=== PATIENT | male | born 1940 | race Caucasian/White ===

== ENCOUNTER 2024-01-24 09:14 | Inpatient (IN) ==
[2024-01-24] MEDS ORDERED: IOPAMIDOL 100 ML BOTTLE IV ONE (09:15)
[2024-01-24] MEDS: 0.9 % SODIUM CHLORIDE 1,000 ML IV ONE ×2 (09:26→19:44)
[2024-01-24] MEDS: ONDANSETRON 4 MG/2 ML VIAL IV ONE (09:28)
[2024-01-24 09:46] LABS: Basophils # (Auto) 0.02 K/mcL (0.00-0.30); Basophils % (Auto) 0.3 % (0.0-2.0); Eosinophils # (Auto) 0.17 K/mcL (0.00-0.70); Eosinophils % (Auto) 2.7 % (0.0-7.0); Hematocrit 36.8 % (40.1-51.0); Hemoglobin 12.5 g/dL (13.7-17.5); Lymphocytes # (Auto) 1.33 K/mcL (1.50-4.80); Lymphocytes % (Auto) 20.8 % (15.5-49.0); Mean Cell Volume 96.1 fL (80.0-100.0); Mean Platelet Volume 8.7 fL (8.8-12.5); Monocytes # (Auto) 0.59 K/mcL (0.10-0.90); Monocytes % (Auto) 9.2 % (1.0-12.0); Neutrophils % (Auto) 66.1 % (38.0-78.0); Platelet Count 237 K/mcL (140-440); RBC 3.83 M/mcL (4.63-6.08); Red Cell Distribution Width 12.9 % (11.5-14.5); WBC 6.4 K/mcL (4.5-11.0)
[2024-01-24 10:07] LABS: ALT/SGPT 10 U/L (<40); AST/SGOT 28 U/L (<40); Albumin 4.1 gm/dL (3.2-5.2); Albumin/Globulin Ratio 1.4 (1.0-2.3); Alkaline Phosphatase 64 U/L (39-117); Bilirubin,Total 0.5 mg/dL (0.1-1.0); Blood Urea Nitrogen 35 mg/dL (8-23); Calcium 9.2 mg/dL (8.6-10.4); Carbon Dioxide 18 mmol/L (22-30); Chloride 94 mmol/L (96-108); Glomerular Filtration Rate 81; Glucose 82 mg/dL (70-105); Potassium 4.7 mmol/L (3.3-5.1); Sodium 131 mmol/L (133-145)
[2024-01-24] MEDS: HYDROmorphone 1 MG/ML SYRINGE IV ONE (12:11)
[2024-01-24 13:46] LABS: Appearance,Urine Clear (Clear); Bilirubin,Urine Small mg/dL (Negative); Color,Urine Yellow; Glucose,Urine (UA) Negative (Negative); Ketones,Urine 80 mg/dL (Negative); Leukocyte Esterase,Urine Negative /uL (Negative); Nitrate,Urine Negative (Negative); Protein,Urine Negative (Negative); Urine Blood Moderate ery/mcL (Negative); Urine Hyaline Cast 7 /lph (0-2); Urine RBC 2 /hpf (0-3); Urine Squamous Epithelial Cell 1 /hpf (0-4); Urine WBC 0 /hpf (0-4); Urobilinogen,Urine Normal
[2024-01-24] MEDS: AZITHROMYCIN 250 MG TABLET PO ONE (15:32)
[2024-01-24] MEDS: AMOXICILLIN/POTASSIUM CLAV 875 MG TABLET PO ONE (15:32)
[2024-01-24] MEDS: HYDROmorphone 0.5 MG/0.5 ML SYRINGE IV ONE (16:33)
[2024-01-24 17:14] LABS: INR 8.6 (0.9-1.1); Prothrombin Time 72.4 sec (11.9-14.5)
[2024-01-24] MEDS ORDERED: POTASSIUM CHLORIDE 20 MEQ TABLET PO PRN ×2 (18:55)
[2024-01-24] MEDS ORDERED: METOPROLOL TARTRATE 5 MG/5 ML VIAL IV PRN (18:55)
[2024-01-24] MEDS ORDERED: ENALAPRILAT 1.25 MG/ML VIAL IV PRN (18:55)
[2024-01-24] MEDS ORDERED: IPRATROPIUM/ALBUTEROL 3 ML AMPUL.NEB NEB PRN (18:55)
[2024-01-24] MEDS ORDERED: POTASSIUM CHLORIDE 40 MEQ in DEXTROSE 5% IN WATER 500 ML IV PRN (18:55)
[2024-01-24] MEDS ORDERED: ACETAMINOPHEN 325 MG TABLET PO PRN (18:55)
[2024-01-24] MEDS ORDERED: MAGNESIUM SULFATE 2 GM/50 ML BAG IV PRN (18:55)
[2024-01-24] MEDS: cefTRIAXone 2 GM in DEXTROSE 5% IN WATER 50 ML IV SCH (19:44)
[2024-01-24] MEDS: cefTRIAXone 2 GM VIAL ONE (19:52)
[2024-01-24] MEDS: HYDROcodone/APAP 5/325MG TABLET PO PRN (20:59)
[2024-01-24] MEDS: LISINOPRIL 20 MG TABLET PO SCH (20:59)
[2024-01-24] MEDS: SENNOSIDES 1 TABLET PO PRN (21:00)
[2024-01-24] MEDS: DOCUSATE SODIUM 100 MG CAPSULE PO SCH (21:00)
[2024-01-24] MEDS: SIMVASTATIN 10 MG TABLET PO SCH (21:00)
[2024-01-24] MEDS: METOPROLOL TARTRATE 25 MG TABLET PO SCH (21:00)
[2024-01-24] MEDS: amLODIPine 5 MG TABLET PO SCH (21:00)
[2024-01-24] MEDS: HYDROcodone/APAP 5/325MG TABLET PO ONE (21:00)
[2024-01-24] MEDS: 0.9 % SODIUM CHLORIDE 10 ML SYRINGE IV SCH (21:00)
[2024-01-25 05:46] LABS: Basophils # (Auto) 0.01 K/mcL (0.00-0.30); Basophils % (Auto) 0.1 % (0.0-2.0); Eosinophils # (Auto) 0.14 K/mcL (0.00-0.70); Eosinophils % (Auto) 1.9 % (0.0-7.0); Hematocrit 34.7 % (40.1-51.0); Hemoglobin 11.8 g/dL (13.7-17.5); Lymphocytes # (Auto) 0.94 K/mcL (1.50-4.80); Lymphocytes % (Auto) 12.9 % (15.5-49.0); Mean Cell Volume 96.7 fL (80.0-100.0); Mean Platelet Volume 8.7 fL (8.8-12.5); Monocytes # (Auto) 0.69 K/mcL (0.10-0.90); Monocytes % (Auto) 9.4 % (1.0-12.0); Neutrophils % (Auto) 75.2 % (38.0-78.0); Platelet Count 218 K/mcL (140-440); RBC 3.59 M/mcL (4.63-6.08); WBC 7.3 K/mcL (4.5-11.0)
[2024-01-25 06:28] LABS: ALT/SGPT 10 U/L (<40); AST/SGOT 26 U/L (<40); Albumin 3.6 gm/dL (3.2-5.2); Albumin/Globulin Ratio 1.4 (1.0-2.3); Alkaline Phosphatase 57 U/L (39-117); Bilirubin,Direct < 0.2 mg/dL (0-0.3); Bilirubin,Total 0.3 mg/dL (0.1-1.0); Blood Urea Nitrogen 29 mg/dL (8-23); Calcium 8.6 mg/dL (8.6-10.4); Carbon Dioxide 17 mmol/L (22-30); Chloride 100 mmol/L (96-108); Globulin 2.6 gm/dL (2.2-3.7); Glomerular Filtration Rate 86; Glucose 72 mg/dL (70-105); Lactate Dehydrogenase 135 U/L (135-225); Phosphorous 3.5 mg/dL (2.5-4.5); Potassium 4.9 mmol/L (3.3-5.1); Sodium 134 mmol/L (133-145); Triglycerides 71 mg/dL (<150); Uric Acid 7.2 mg/dL (2.5-8.0)
[2024-01-25 08:40] LABS: Prothrombin Time 99.5 sec (11.9-14.5)
[2024-01-25] MEDS: SERTRALINE 100 MG TABLET PO SCH (08:54)
[2024-01-25] MEDS: TAMSULOSIN 0.4 MG CAPSULE PO SCH (08:55)
[2024-01-25] MEDS: cefTRIAXone 2 GM VIAL ONE (08:55)
[2024-01-25] MEDS: SODIUM BICARBONATE 650 MG TABLET PO SCH (08:55)
[2024-01-25] MEDS: traZODone HCL 100 MG TABLET PO SCH (08:55)
[2024-01-25] MEDS: METOPROLOL TARTRATE 50 MG TABLET PO SCH (08:55)
[2024-01-25] MEDS: AZITHROMYCIN 500 MG in DEXTROSE 5% IN WATER 250 ML IV SCH (12:18)
[2024-01-25] MEDS: POLYETHYLENE GLYCOL 3350 17 GM PACKET PO PRN (15:41)
[2024-01-26 06:13] LABS: ALT/SGPT 10 U/L (<40); AST/SGOT 27 U/L (<40); Albumin 3.5 gm/dL (3.2-5.2); Albumin/Globulin Ratio 1.5 (1.0-2.3); Alkaline Phosphatase 55 U/L (39-117); Bilirubin,Direct < 0.2 mg/dL (0-0.3); Bilirubin,Total 0.3 mg/dL (0.1-1.0); Blood Urea Nitrogen 30 mg/dL (8-23); Calcium 8.7 mg/dL (8.6-10.4); Carbon Dioxide 20 mmol/L (22-30); Chloride 102 mmol/L (96-108); Globulin 2.3 gm/dL (2.2-3.7); Glomerular Filtration Rate 86; Glucose 100 mg/dL (70-105); Lactate Dehydrogenase 128 U/L (135-225); Phosphorous 2.6 mg/dL (2.5-4.5); Potassium 4.5 mmol/L (3.3-5.1); Sodium 135 mmol/L (133-145); Triglycerides 58 mg/dL (<150); Uric Acid 7.3 mg/dL (2.5-8.0)
[2024-01-26 06:46] LABS: INR 15.1 (0.9-1.1); Prothrombin Time 111.8 sec (11.9-14.5)
[2024-01-26] MEDS: ONDANSETRON 4 MG/2 ML VIAL IV PRN (08:05)
[2024-01-26] MEDS: PHYTONADIONE 10 MG/ML AMPUL PO ONE (09:51)
[2024-01-26] MEDS: SODIUM BICARBONATE 650 MG TABLET PO SCH (15:01)
[2024-01-27 07:00] LABS: Blood Urea Nitrogen 22 mg/dL (8-23); Calcium 8.8 mg/dL (8.6-10.4); Carbon Dioxide 23 mmol/L (22-30); Chloride 102 mmol/L (96-108); Glomerular Filtration Rate 91; Glucose 97 mg/dL (70-105); Potassium 4.4 mmol/L (3.3-5.1); Sodium 135 mmol/L (133-145)
[2024-01-27 07:27] LABS: INR 2.9 (0.9-1.1); Prothrombin Time 30.8 sec (11.9-14.5)
[2024-01-27] MEDS: MAGNESIUM HYDROXIDE 30 ML ORAL.SUSP PO ONE (10:16)
[2024-01-27] MEDS: POLYETHYLENE GLYCOL 3350 17 GM PACKET PO SCH (11:32)
[2024-01-27] MEDS ORDERED: DIATRIZOATE MEGLU/DIATRIZO SOD 30 ML BOTTLE PO ONE (14:43)
[2024-01-27] MEDS: WARFARIN 5 MG TABLET PO ONE (14:51)
[2024-01-28 06:42] LABS: INR 1.9 (0.9-1.1); Prothrombin Time 22.2 sec (11.9-14.5)
== END 2024-01-28 10:18 | DRG 193 ==
LOC: ED 09:14 → MEDSUR 18:38
PROVIDERS: ADMIT Internal Medicine; ATTEND Internal Medicine